=== PATIENT | female | born 1980 | race African-American/Black ===

== ENCOUNTER → 2021-05-05 | Day surgery (SDC) | payer BC ==
[~2021-05-05] MED LIST: CLONIDINE HCL0.2 MG PO; COREG12.5 MG PO; FLUOXETINE HCL20 M1 PO; FUROSEMIDE40 MG PO; GLYCOPYRROLATE INJ 0.2 MG/ML VIAL ONE; HYDRALAZINE HCL10 MG PO; METFORMIN HCL500 MG PO; METOCLOPRAMIDE HCL 10 MG/2ML VIAL ONE; MIDAZOLAM HCL 2 MG/2 ML VIAL ONE; MULTI-VITAMIN1 EACH PO; NIFEDIPINE ER30 M1 PO; PANTOPRAZOLE SO40 MG PO; POVIDONE IODINE 0.05% 0.05 % ML PO ONE; PROPOFOL IV EMULSION 10 MG/ML 20 ML VIAL ONE; SIMVASTATIN20 MG PO; SODIUM CHLORIDE 0.9% 50ML 50 ML ONE; VIT D PO; VITAMIN D PO
[2021-05-05 15:55] VITALS: BP 146/87
== END | disposition home or self-care (01) ==
LOC: ENDO 11:54
PROVIDERS: ATTEND Internal Medicine Gastroenterology
DX: K20.90 Esophagitis, unspecified without bleeding (principal); K44.9 Diaphragmatic hernia without obstruction or gangrene; K21.9 Gastro-esophageal reflux disease without esophagitis; K59.09 Other constipation; Z98.84 Bariatric surgery status; Z71.3 Dietary counseling and surveillance; G47.33 Obstructive sleep apnea (adult) (pediatric); J45.909 Unspecified asthma, uncomplicated; I10 Essential (primary) hypertension; E66.01 Morbid (severe) obesity due to excess calories; E11.9 Type 2 diabetes mellitus without complications; E78.00 Pure hypercholesterolemia, unspecified; F41.9 Anxiety disorder, unspecified; Z88.6 Allergy status to analgesic agent; Z01.810 Encounter for preprocedural cardiovascular examination; Z01.812 Encounter for preprocedural laboratory examination; Z20.822 Contact with and (suspected) exposure to COVID-19; Z79.84 Long term (current) use of oral hypoglycemic drugs; Z79.899 Other long term (current) drug therapy; Z79.82 Long term (current) use of aspirin; Z68.43 Body mass index [BMI] 50.0-59.9, adult; Z86.16 Personal history of COVID-19; Z80.0 Family history of malignant neoplasm of digestive organs
CPT/HCPCS: 36415; 43239; 43450; 81025; 82948; 93005; C9113; J2250; J2704; J2765; U0002

== ENCOUNTER → 2021-05-13 | Outpatient (CLI) | payer BC ==
[~2021-05-13] MED LIST changes: -GLYCOPYRROLATE INJ 0.2 MG/ML VIAL ONE; -METOCLOPRAMIDE HCL 10 MG/2ML VIAL ONE; -MIDAZOLAM HCL 2 MG/2 ML VIAL ONE; -POVIDONE IODINE 0.05% 0.05 % ML PO ONE; -PROPOFOL IV EMULSION 10 MG/ML 20 ML VIAL ONE; -SODIUM CHLORIDE 0.9% 50ML 50 ML ONE
== END ==
LOC: US 09:21
PROVIDERS: ATTEND Internal Medicine Gastroenterology
DX: R10.10 Upper abdominal pain, unspecified (principal)
CPT/HCPCS: 76700